=== PATIENT | male | born 1965 | race Caucasian/White ===

== ENCOUNTER → 2016-07-07 | Day surgery (SDC) | payer BC ==
[~2016-07-07] MED LIST: ASPIRIN CHEWABL81 MG PO; COQ-10100 MG PO; COZAAR100 MG PO; DEPO-TESTO200 MG/1 M IM; DEXILANT60 MG PO; FISH OIL 1,0001 EACH PO; HYGROTON TAB 2525 MG PO; LIPITOR TAB 1010 MG PO; LORTAB 7.5-3251 EACH PO; NORCO 5-325 TA1 EACH PO; NORVASC 5 MG TAB5 MG PO; TOPROL XL50 MG PO
== END | disposition home or self-care (01) ==
LOC: OR 07:32
PROVIDERS: Surgery
PROC: 06BY4ZC Excision of Hemorrhoidal Plexus, Percutaneous Endoscopic Approach (ICD-10-PCS; principal; 2016-07-07 08:20)
DX: K64.8 Other hemorrhoids (principal); I10 Essential (primary) hypertension; Z82.49 Family history of ischemic heart disease and other diseases of the circulatory system; Z83.3 Family history of diabetes mellitus; Z79.82 Long term (current) use of aspirin; Z79.891 Long term (current) use of opiate analgesic; Z79.899 Other long term (current) drug therapy; Z90.49 Acquired absence of other specified parts of digestive tract; Z98.890 Other specified postprocedural states
CPT/HCPCS: J0690; J1200; J1885; J2250; J2405; J2795; J3010; J7030; J7120

== ENCOUNTER → 2016-10-16 | Outpatient (CLI) | payer BC ==
[2016-10-16 07:37] LABS: HEMOGLOBIN 15.3 gm/dl (14.0-17.5); RED BLOOD COUNT 5.38 M/UL (4.20-5.50); WHITE BLOOD COUNT 9.3 K/UL (4.5-11.0)
[2016-10-16 07:54] LABS: BUN/CREATININE RATIO 23 (0-10)
== END ==
LOC: LAB 07:17
PROVIDERS: Legal Medicine
DX: E29.1 Testicular hypofunction (principal)
CPT/HCPCS: 36415; 80053; 84153; 84402; 84403; 85027

== ENCOUNTER 2016-10-20 12:08 | Emergency (ER) | payer OTHER | END 2016-10-20 13:55 | disposition home or self-care (01) | LOC: ER1 12:08 | DX: S93.601A Unspecified sprain of right foot, initial encounter (principal); I10 Essential (primary) hypertension; E78.5 Hyperlipidemia, unspecified; X50.1XXA Overexertion from prolonged static or awkward postures, initial encounter | CPT/HCPCS: 73610; 73630; 96372; 99283; J1885 ==

== ENCOUNTER → 2020-04-29 | Outpatient (CLI) | payer BC, OTHER ==
[~2020-04-29] MED LIST changes: +PROMETHAZINE HC25 M1 PO
[2020-04-29 11:30] LABS: HEMOGLOBIN 14.4 gm/dl (14.0-17.5); RED BLOOD COUNT 5.16 M/UL (4.20-5.50); WHITE BLOOD COUNT 7.9 K/UL (4.5-11.0)
[2020-04-29 12:13] LABS: BUN/CREATININE RATIO 16 (0-10)
[2020-04-30 22:11] LABS: TESTOSTERONE, SERUM 300 ng/dL (264-916)
== END ==
LOC: LAB 10:44
PROVIDERS: Legal Medicine
DX: I10 Essential (primary) hypertension (principal); E29.1 Testicular hypofunction
CPT/HCPCS: 36415; 80053; 80061; 83735; 84153; 84402; 84403; 84443; 85027

== ENCOUNTER 2020-10-28 23:29 | Emergency (ER) | payer BC | END 2020-10-29 01:30 | disposition home or self-care (01) | LOC: ER1 23:29 | DX: S53.441A Ulnar collateral ligament sprain of right elbow, initial encounter (principal); X50.9XXA Other and unspecified overexertion or strenuous movements or postures, initial encounter; Y92.89 Other specified places as the place of occurrence of the external cause; Y99.0 Civilian activity done for income or pay | CPT/HCPCS: 73080; 99283 ==

== ENCOUNTER → 2020-12-24 | Outpatient (CLI) | payer BC ==
[2020-12-24 07:11] LABS: HEMOGLOBIN 14.6 gm/dl (14.0-17.5); RED BLOOD COUNT 5.25 M/UL (4.20-5.50); WHITE BLOOD COUNT 9.1 K/UL (4.5-11.0)
[2020-12-24 07:27] LABS: BUN/CREATININE RATIO 18 (0-10)
== END ==
LOC: LAB 06:12
PROVIDERS: Legal Medicine
DX: I10 Essential (primary) hypertension (principal); E87.6 Hypokalemia
CPT/HCPCS: 36415; 80053; 80061; 82043; 83735; 84443; 85027